=== PATIENT | female | born 1985 | race Hispanic/Latino ===

== ENCOUNTER 2016-10-27 20:07 | Emergency (ER) | payer OTHER ==
[2016-10-27 20:07] VITALS: BMI 22.6
[2016-10-27 20:14] VITALS: RESP 16; TEMP 98; O2SAT 100
--- NOTE | 2016-10-27 20:48 | C.PDOC ---
History Of Present Illness 31 yo female come inf or evaluation of Left flank pain for past few weeks gradually worsen. Pt reports, pain is intermittent, worse with movement, with intermittent radiation to Left buttock and Left leg. Pt admits, noted some pain on urination for past few days. Pt admits, similar lower flank/back pain in past " not as strong as now, usually relieved with Ibuprofen". Otherwise, pt denies known trauma or injury, fever, chills, abd. pain, N/V/D, hematuria, vaginal irritation or discharge, denies weakness, sensory or vascular deficits to B/L LEs. Ambulate to ED for evaluation, not in nay apparent distress. Time Seen by Provider: 10/27/16 20:20 Chief Complaint (Nursing): Lower Extremity Problem/Injury History Per: Patient Onset/Duration Of Symptoms: Intermittent Episodes, Gradual Current Symptoms Are (Timing): Still Present Severity: Moderate Recent travel outside of the [place]: No Past Medical History Reviewed: Historical Data, Nursing Documentation, Vital Signs Vital Signs: Last Vital Signs Temp 98.0 F 10/27/16 20:10 Pulse 68 10/27/16 20:10 Resp 16 10/27/16 20:10 BP 106/72 10/27/16 20:10 Pulse Ox 100 10/27/16 21:22 - Medical History PMH: No Chronic Diseases Surgical History: No Surg Hx Family History: States: No Known Family Hx - Social History Hx Alcohol Use: Yes Hx Substance Use: No - Immunization History Hx Tetanus Toxoid Vaccination: No Hx Influenza Vaccination: No Hx Pneumococcal Vaccination: No Review Of Systems Except As Marked, All Systems Reviewed And Found Negative. Constitutional: Negative for: Fever, Chills ENT: Negative for: Throat Pain Respiratory: Negative for: Cough Gastrointestinal: Negative for: Nausea, Vomiting, Abdominal Pain, Diarrhea Genitourinary: Positive for: Dysuria. Negative for: Frequency, Incontinence Musculoskeletal: Positive for: Back Pain Skin: Negative for: Rash Neurological: Negative for: Weakness, Numbness, Headache, Dizziness Physical Exam - Physical Exam Appears: Well, Non-toxic, No Acute Distress Skin: Normal Color, Warm, No Rash Eye(s): bilateral: Normal Inspection Nose: No Discharge Oral Mucosa: Moist, No Drooling Throat: Normal, No Erythema, No Exudate, No Drooling Neck: Normal ROM, Trachea Midline, Supple Cardiovascular: Rhythm Regular Respiratory: No Decreased Breath Sounds, No Accessory Muscle Use, No Stridor, No Wheezing Gastrointestinal/Abdominal: Soft, Tenderness (mild suprapubic tenderness), No Distention, No Guarding, No Rebound Back: No CVA Tenderness, No Vertebral Tenderness, Decreased ROM (of L-spine dur to pain), Paraspinal Tenderness (Left flank and diffuse left lumbar paraspinal tenderness extend kedar nt o left gluteus. No midline tenderness, no sckin changes.) Extremity: Normal ROM, No Tenderness, No Pedal Edema, No Deformity, No Swelling Extremity: Bilateral: Atraumatic Neurological/Psych: Oriented x3, Normal Speech, Normal Motor, Normal Sensation, Normal Reflexes ED Course And Treatment O2 Sat by Pulse Oximetry: 100 Pulse Ox Interpretation: Normal Progress Note: On re-eval, pt is afebrile, hemodynamicaly stable. Ambulatory in ED with stable gait. [place] Po well in Ed. PulseOx 100% RA. Neck: (-) meningeal sign. ENT: no acute findings. Lungs: CTA B/L, BS equal B/L. Abd: benign. Back: (-) CVA tenderness. Neurologicaly intact. UA results review and appears normal. last menstrual was 1 month ago. (-). Pt has clinical findings c/w flank pain, Left lumbar radiculopathy. Pt advised. ref. to f/u with PMD in 1-2 dyas for re-eval. return to ED if any worsening or new changes. Disposition Counseled Patient/Family Regarding: Studies Performed, Diagnosis, Need For Followup, Rx Given - Disposition Referrals: Agusto Cerna MD [Staff Provider] - Disposition: HOME/ ROUTINE Disposition Time: 20:55 Condition: STABLE Additional Instructions: Light duty to lower back, avoid any physical activity for 1 week Avoid heavy lifting, bending, etc. take pain medication as need for pain Follow up with PMD in 2-3 days for re-evaluation. Return to ED if any worsening or new changes. Prescriptions: Ibuprofen [Motrin] 1 tab PO TID PRN #20 tab PRN Reason: Pain Methocarbamol [Robaxin] 500 mg PO TID #14 tab traMADol [Ultram] 50 mg PO TID #7 tab Instructions: Lumbar Radiculopathy (ED) Print Language: ARMENIAN - Clinical Impression Clinical Impression: Flank pain, Lumbar radiculopathy
[2016-10-27 21:21] LABS: RBC URINE 8 /hpf (0-3); URINE BACTERIA RARE (<OCC); URINE BILIRUBIN NEGATIVE (NEGATIVE); URINE BLOOD 2+ (NEGATIVE); URINE COLOR Straw (YELLOW); URINE GLUCOSE (UA) NORMAL (Normal); URINE KETONE NEGATIVE (NEGATIVE); URINE LEUKOCYTE ESTERASE NEG Leu/uL (Negative); URINE PROTEIN NEGATIVE (NEGATIVE); URINE UROBILINOGEN NORMAL mg/dL (0.2-1.0); WBC URINE < 1 /hpf (0-5)
[2016-10-27 22:08] VITALS: BP 108/71; PULSE 87
== END 2016-10-27 22:07 | disposition home or self-care (01) ==
LOC: C.ER 20:07
DX: M54.16 Radiculopathy, lumbar region (principal)

== ENCOUNTER 2016-11-12 07:58 | Emergency (ER) | payer OTHER ==
[2016-11-12 07:58] VITALS: BMI 22.6
[2016-11-12] MEDS ORDERED: Lidocaine 5% Patch TD STA (08:33)
--- NOTE | 2016-11-12 08:33 | C.PDOC ---
History Of Present Illness 31-year-old female, presents to the emergency department with complaints of recurring B/L upper back, neck and right-upper ext pain x3 days. Patient notes initial relief with Tramadol, but ran out two days ago. Patient states she is unable to sleep due to pain. Pain is constant, worse with movement. No associated weakness/numbness. Pt had a similar episode one year ago w/ evaluation by PMD "he said it's due to stress." Denies other associated symptoms. States he couldn't see PMD due to office closed. RECUR B/L UPPER BACK, NECK, RUE PAIN X 3 DAYS. INITIAL RELIEF W TRAMADOL BUT RAN OUT 2 DAYS AGO. PS UNABLE TO SLEEP DUE TO PAIN. PAIN CONSTANT, WORSE W MOVEMENT. NO ASSOC WEAK/NUMB. SIM EPISODE 1 YR AGO W EVAL BY PMD, "HE SAID IT'S DUE TO STRESS". DENIES OTHER ASSOC SX STATES COULDNT SEE PMD DUE TO OFFICE CLOSED. EXAM MILD DIST NONTOXIC HEENT NEG NECK AROM WO DIFF, +REPRODUC PAIN W ROM. B/L PARACERV TEND BACK +B/L SPASM W TEND UPPER BACK. LIMITED ROM DUE TO PAIN. NEURO INTACT NO FOCAL DEF EXT ATRAUM, NONTEND SKIN WNL [facility] REVIEWED 10/30/2016 1 10/27/2016 TRAMADOL HCL 50 MG TABLET 7.0 Time Seen by Provider: 11/12/16 08:19 Chief Complaint (Nursing): Back Pain History Per: Patient History/Exam Limitations: no limitations Past Medical History Reviewed: Historical Data, Nursing Documentation, Vital Signs Vital Signs: Last Vital Signs Temp 98.5 F 11/12/16 08:06 Pulse 75 11/12/16 08:06 Resp 18 11/12/16 08:45 BP 101/70 11/12/16 08:06 Pulse Ox 100 11/12/16 09:28 Family History: States: Unknown Family Hx - Social History Hx Alcohol Use: Yes Hx Substance Use: No - Immunization History Hx Tetanus Toxoid Vaccination: No Hx Influenza Vaccination: No Hx Pneumococcal Vaccination: No Review Of Systems Except As Marked, All Systems Reviewed And Found Negative. Constitutional: Negative for: Fever, Chills Cardiovascular: Negative for: Chest Pain, Palpitations Respiratory: Negative for: Shortness of Breath Gastrointestinal: Negative for: Nausea, Vomiting Musculoskeletal: Positive for: Neck Pain, Shoulder Pain, Arm Pain, Back Pain Skin: Negative for: Rash Neurological: Negative for: Weakness, Numbness, Headache, Dizziness Physical Exam - Physical Exam Appears: Non-toxic, No Acute Distress Skin: Warm, Dry, No Rash Head: Atraumatic, Normacephalic Eye(s): bilateral: Normal Inspection, PERRL Nose: Normal Lips: Normal Appearing Neck: Normal ROM, Supple, Other (+REPRODUC PAIN W ROM. B/L PARACERV TEND) Cardiovascular: Rhythm Regular Respiratory: Normal Breath Sounds, No Accessory Muscle Use Back: Other (+B/L SPASM W TEND UPPER BACK. LIMITED ROM DUE TO PAIN.) Extremity: Normal ROM Neurological/Psych: Oriented x3, Normal Speech ED Course And Treatment O2 Sat by Pulse Oximetry: 100 Progress - Re-Evaluation Re-evaluation Note: 11/12/16 08:34 PT ADVISED OF DEPT PAIN MED POLICY. COPY GIVEN. ADVISED NEED FOR PMD FU - Data Reviewed Data Reviewed: Old records, Other ([facility]) Medical Decision Making Medical Decision Making: [facility] REVIEWED 10/30/2016 1 10/27/2016 TRAMADOL HCL 50 MG TABLET 7.0 Disposition Counseled Patient/Family Regarding: Diagnosis, Need For Followup, Rx Given - Disposition Referrals: YOUR,PMD [Other] Disposition: HOME/ ROUTINE Disposition Time: 08:34 Condition: IMPROVED Prescriptions: Lidocaine 5% [Lidoderm] 1 ea TD PRN PRN #10 patch PRN Reason: Pain, Moderate (4-7) traMADol [Ultram] 50 mg PO TID #15 tab Instructions: Muscle Spasm (ED) - Clinical Impression Clinical Impression: Muscle spasm - Scribe Statement The provider has reviewed the documentation as recorded by the Federico Chandler All medical record entries made by the Agapitoibleonard were at my direction and personally dictated by me. I have reviewed the chart and agree that the record accurately reflects my personal performance of the history, physical exam, medical decision making, and the department course for this patient. I have also personally directed, reviewed, and agree with the discharge instructions and disposition.
[2016-11-12 08:37] VITALS: BP 101/70; PULSE 75; TEMP 98.5; O2SAT 100
[2016-11-12 09:27] VITALS: RESP 18
== END 2016-11-12 08:46 | disposition home or self-care (01) ==
LOC: C.ER 07:58
DX: M62.838 Other muscle spasm (principal)

== ENCOUNTER 2016-12-01 09:14 | Emergency (ER) | payer OTHER ==
[2016-12-01 09:19] VITALS: TEMP 97.5
[2016-12-01 09:29] VITALS: BMI 22.8
--- NOTE | 2016-12-01 09:49 | C.PDOC ---
History Of Present Illness 31-year-old female, presents to the emergency department with complaints of chronic upper back and neck pain. Patient reports relief with Tramadol, but ran out four days ago. Pain is constant aching and worse with movement. No associated weakness/numbness. Denies other associated symptoms. Time Seen by Provider: 12/01/16 09:41 Chief Complaint (Nursing): Back Pain History Per: Patient History/Exam Limitations: no limitations Onset/Duration Of Symptoms: Days Quality Of Discomfort: Aching Previous Symptoms: Back Pain, Neck Pain Associated Symptoms: denies: New Weakness, New Numbness Exacerbating Factor(s): Movement Past Medical History Reviewed: Historical Data, Nursing Documentation, Vital Signs Vital Signs: Last Vital Signs Temp 97.5 F L 12/01/16 09:19 Pulse 72 12/01/16 10:32 Resp 18 12/01/16 10:32 BP 120/72 12/01/16 10:32 Pulse Ox 98 12/01/16 10:32 - Medical History PMH: Back Problems Family History: States: Unknown Family Hx - Social History Hx Alcohol Use: Yes Hx Substance Use: No - Immunization History Hx Tetanus Toxoid Vaccination: Yes Hx Influenza Vaccination: Yes Hx Pneumococcal Vaccination: No Review Of Systems Constitutional: Negative for: Fever, Chills Cardiovascular: Negative for: Chest Pain Gastrointestinal: Negative for: Nausea, Vomiting, Diarrhea Musculoskeletal: Positive for: Neck Pain, Back Pain Neurological: Negative for: Weakness Physical Exam - Physical Exam Appears: Non-toxic, No Acute Distress Skin: Normal Color, Warm Head: Atraumatic, Normacephalic Eye(s): bilateral: Normal Inspection Oral Mucosa: Moist Neck: Normal ROM (Pain with ROM), Paracervical Tenderness (Bilateral Paracervical tenderness), No Step Off Deformity Cardiovascular: Rhythm Regular Respiratory: Normal Breath Sounds, No Rales, No Rhonchi, No Wheezing Back: Normal Inspection, No Vertebral Tenderness, No Decreased ROM, Paraspinal Tenderness (Parathhoracic Tenderness) Extremity: Bilateral: Atraumatic, Normal Color And Temperature, Normal ROM Neurological/Psych: Oriented x3, Normal Speech, Normal Motor, Normal Sensation, Other (No focal deficits) Gait: Steady ED Course And Treatment O2 Sat by Pulse Oximetry: 100 Medical Decision Making Medical Decision Making: Patient here for neck and upper back pain. Prior records show 2 similar visits for same sx. This is patient 3rd ER visit for same [facility] Reviewed: 11/12/2016 TRAMADOL HCL 50 MG TABLET #15.0 10/30/2016 TRAMADOL HCL 50 MG TABLET #7.0 I discussed ED Department Pain management policy, and explain this will be last visit for pain meds of chronic condition. She must follow up outpatient Disposition Counseled Patient/Family Regarding: Need For Followup, Rx Given - Disposition Referrals: Kay Gusman MD [Staff Provider] - Disposition: HOME/ ROUTINE Disposition Time: 09:51 Condition: STABLE Additional Instructions: Please follow up in the clinic for further evaluation and treatment of your pain Take Tramadol as needed Return to ER at anytime for any worsening pain. Prescriptions: traMADol [Ultram] 50 mg PO Q8 #15 tab Instructions: Back Pain (ED) - POA Present On Arrival: None - Clinical Impression Clinical Impression: Thoracic back pain, Neck pain - PA / INSTALLER / Resident Statement MD/DO has reviewed & agrees with the documentation as recorded. - Scribe Statement The provider has reviewed the documentation as recorded by the Agapitoibleonard Kennedy All medical record entries made by the Federico were at my direction and personally dictated by me. I have reviewed the chart and agree that the record accurately reflects my personal performance of the history, physical exam, medical decision making, and the department course for this patient. I have also personally directed, reviewed, and agree with the discharge instructions and disposition.
[2016-12-01 10:32] VITALS: BP 120/72; PULSE 72; RESP 18
[2016-12-01 14:40] VITALS: O2SAT 100
== END 2016-12-01 10:33 | disposition home or self-care (01) ==
LOC: SUPCPDRO 09:14 → C.ER 09:14
DX: M54.6 Pain in thoracic spine (principal); M54.2 Cervicalgia

== ENCOUNTER 2017-05-28 07:16 | Day surgery (SDC) | payer OTHER ==
[2017-05-28 07:36] VITALS: BMI 23.2
[2017-05-28 07:50] VITALS: TEMP 98; O2SAT 100
[2017-05-28] MEDS ORDERED: Propofol 10 mg/ml Inj (20 ML) ONE (09:10)
[2017-05-28 10:37] VITALS: BP 100/57; PULSE 64; RESP 19
== END 2017-05-28 10:34 | disposition home or self-care (01) ==
LOC: C.ENDO 07:16
PROVIDERS: ATTEND Internal Medicine
DX: R11.2 Nausea with vomiting, unspecified (principal); K29.70 Gastritis, unspecified, without bleeding
CPT/HCPCS: 43239; 84703; 88305; J2704

== ENCOUNTER 2017-07-28 19:13 | Emergency (ER) | payer OTHER ==
[2017-07-28 19:14] VITALS: BMI 23.2
[2017-07-28 20:05] VITALS: RESP 20; O2SAT 100
[2017-07-28] MEDS ORDERED: Alum-Mag Hydrox-Simethicone Susp (30 mL) PO STA (20:29)
[2017-07-28] MEDS ORDERED: Sodium Chloride 0.9% 1,000 ML IV ONE (20:29)
--- NOTE | 2017-07-28 20:42 | C.PDOC ---
History Of Present Illness Chapis Moulton is a 32 year old female, with a past medical history of gastritis and back problems, who presents to the emergency department complaining of epigastric abdominal pain, vomiting and back pain onset since yesterday. Patient also reports watery diarrhea today. Patient had an EGD done and was told she had H. Pylori recently. No similar symptoms in the past. She denies any fever or other medical complaints. PMD: None provided. Time Seen by Provider: 07/28/17 20:15 Chief Complaint (Nursing): Abdominal Pain History Per: Patient History/Exam Limitations: no limitations Onset/Duration Of Symptoms: Days (x1) Current Symptoms Are (Timing): Still Present Location Of Pain/Discomfort: Epigastric Radiation Of Pain To:: None Quality Of Discomfort: "Pain" Associated Symptoms: Vomiting, Diarrhea (watery), Back Pain. denies: Fever Past Medical History Reviewed: Historical Data, Nursing Documentation, Vital Signs Vital Signs: Last Vital Signs Temp 98.2 F 07/28/17 22:49 Pulse 78 07/28/17 22:49 Resp 20 07/28/17 22:49 BP 92/62 L 07/28/17 22:49 Pulse Ox 100 07/28/17 22:49 - Medical History PMH: Back Problems, Gastritis Denies: Chronic Kidney Disease Surgical History: No Surg Hx Family History: States: Unknown Family Hx - Social History Hx Tobacco Use: No Hx Alcohol Use: Yes Hx Substance Use: No - Immunization History Hx Tetanus Toxoid Vaccination: Yes Hx Influenza Vaccination: Yes Hx Pneumococcal Vaccination: No Review Of Systems Constitutional: Negative for: Fever, Chills Cardiovascular: Negative for: Chest Pain Respiratory: Negative for: Cough, Shortness of Breath Gastrointestinal: Positive for: Vomiting, Abdominal Pain (epigastric), Diarrhea (watery). Negative for: Nausea Musculoskeletal: Positive for: Back Pain Neurological: Negative for: Weakness, Numbness Physical Exam - Physical Exam Appears: Well, Non-toxic, No Acute Distress Skin: Normal Color, Warm, Dry Head: Atraumatic, Normacephalic Eye(s): bilateral: Normal Inspection Oral Mucosa: Moist Neck: Supple Chest: Symmetrical, No Tenderness Cardiovascular: Rhythm Regular Respiratory: No Decreased Breath Sounds, No Accessory Muscle Use, No Rales, No Rhonchi, No Wheezing Gastrointestinal/Abdominal: Tenderness (epigastric ) Extremity: No Swelling Neurological/Psych: Oriented x3, Normal Speech, Normal Cognition, Other (no focal deficits) ED Course And Treatment - Laboratory Results Result Diagrams: 07/28/17 21:03 07/28/17 21:03 O2 Sat by Pulse Oximetry: 100 (RA) Pulse Ox Interpretation: Normal Medical Decision Making Medical Decision Makin pt feeling better. disc plan for rx, f/u, rtr. Disposition - Disposition Disposition: HOME/ ROUTINE Disposition Time: 22:30 Condition: IMPROVED Additional Instructions: Please follow up with your doctor. Return to the ER for any worsening symptoms or for any other concerns. Prescriptions: Famotidine [Pepcid] 20 mg PO DAILY #14 tab Sucralfate [Carafate Oral Susp] 1 gm PO TID #6 dose Instructions: Diet for Ulcers and Gastritis (ED) Forms: General Discharge Instructions, [facility] (Danish) - Clinical Impression Clinical Impression: Epigastric pain - Scribe Statement Lisandro Acuña Provider Attestation: All medical record entries made by the Scribe were at my direction and personally dictated by me. I have reviewed the chart and agree that the record accurately reflects my personal performance of the history, physical exam, medical decision making, and the department course for this patient. I have also personally directed, reviewed, and agree with the discharge instructions and disposition.
[2017-07-28 21:06] LABS: BASO % 0.3 % (0.0-2.0); EOS # 0.2 K/uL (0.0-0.7); EOS % 2.6 % (0.0-4.0); HEMOGLOBIN 13.5 g/dL (11.0-16.0); LYMPH # 1.5 K/uL (1.0-4.3); LYMPH % 19.2 % (20.0-40.0); MEAN CORPUSCULAR HEMOGLOBIN 32.1 pg (27.0-31.0); MEAN CORPUSCULAR HGB CONC 33.8 g/dL (33.0-37.0); MEAN PLATELET VOLUME 8.9 fL (7.2-11.7); MONO # 0.4 K/uL (0.0-0.8); MONO % 5.1 % (0.0-10.0); NEUT # 5.7 K/uL (1.8-7.0); NEUT % 72.8 % (50.0-75.0); NRBC % 0.1 % (0.0-2.0); RBC 4.19 Mil/uL (3.80-5.20); RED CELL DISTRIBUTION WIDTH 12.9 % (11.5-14.5); WHITE BLOOD COUNT 7.9 K/uL (4.8-10.8)
[2017-07-28 21:19] LABS: ALB/GLOB RATIO 1.2 (1.0-2.1); ALBUMIN 4.2 g/dL (3.5-5.0); ALT/SGPT 31 U/L (9-52); AST/SGOT 21 U/L (14-36); BLOOD UREA NITROGEN 10 mg/dL (7-17); GFR AFRICAN-AMERICAN > 60; GFR NON-AFRICAN AMERICAN > 60; LIPASE 98 U/L (23-300)
[2017-07-28] MEDS ORDERED: Alum-Mag Hydrox-Simethicone Susp (30 mL) ONE (21:43)
[2017-07-28] MEDS ORDERED: Sodium Chloride 0.9% 1,000 ML ONE (21:43)
[2017-07-28 22:04] LABS: SQUAMOUS EPITHIAL 9 /hpf (0-5); URINE BACTERIA RARE (<OCC); URINE BILIRUBIN NEGATIVE (NEGATIVE); URINE BLOOD 2+ (NEGATIVE); URINE CLARITY Clear (Clear); URINE COLOR Yellow (YELLOW); URINE GLUCOSE (UA) NORMAL (Normal); URINE LEUKOCYTE ESTERASE NEG Leu/uL (Negative); URINE NITRATE NEGATIVE (NEGATIVE); URINE PROTEIN NEGATIVE (NEGATIVE); URINE UROBILINOGEN NORMAL mg/dL (0.2-1.0)
[2017-07-28 22:06] LABS: HCG,QUALITATIVE URINE NEGATIVE (NEGATIVE)
[2017-07-28 22:50] VITALS: BP 92/62; PULSE 78; TEMP 98.2
== END 2017-07-28 22:49 | disposition home or self-care (01) ==
LOC: C.ER 19:13
DX: R10.13 Epigastric pain (principal)

== ENCOUNTER 2017-11-14 18:26 | Emergency (ER) | payer SELFPAY ==
[2017-11-14 18:26] VITALS: BMI 23.2
[2017-11-14 18:32] VITALS: RESP 20
[2017-11-14 19:22] LABS: BASO # 0.1 K/uL (0.0-0.2); BASO % 0.7 % (0.0-2.0); EOS # 0.2 K/uL (0.0-0.7); EOS % 2.1 % (0.0-4.0); HEMOGLOBIN 12.5 g/dL (11.0-16.0); LYMPH # 3.3 K/uL (1.0-4.3); LYMPH % 39.7 % (20.0-40.0); MEAN CELL VOLUME 96.2 fL (81.0-99.0); MEAN CORPUSCULAR HGB CONC 34.3 g/dL (33.0-37.0); MEAN PLATELET VOLUME 9.5 fL (7.2-11.7); MONO # 0.6 K/uL (0.0-0.8); MONO % 7.5 % (0.0-10.0); NEUT # 4.1 K/uL (1.8-7.0); RBC 3.79 Mil/uL (3.80-5.20); RED CELL DISTRIBUTION WIDTH 12.9 % (11.5-14.5); WHITE BLOOD COUNT 8.3 K/uL (4.8-10.8)
[2017-11-14 19:25] LABS: HCG,QUALITATIVE URINE NEGATIVE (NEGATIVE)
--- NOTE | 2017-11-14 19:26 | C.PDOC ---
History Of Present Illness 32 year old female presents to the emergency department with complaints of abdominal pain persisting since last night. Patient states that initially her pain was tolerable, but has progressively become worse as it now radiates to her lower back. Patient states that she feels the need to have a bowel movement , but is unable to due to pressure in her rectal area which makes it difficult. Patient denies fever, chills, nausea, vomiting, vaginal bleeding or discharge. Patient reports her last normal menstrual period was on 09-10-17, stating that her period is normally irregular. Time Seen by Provider: 11/14/17 18:58 Chief Complaint (Nursing): Abdominal Pain History Per: Patient History/Exam Limitations: no limitations Onset/Duration Of Symptoms: Days (1) Current Symptoms Are (Timing): Still Present Radiation Of Pain To:: Back Quality Of Discomfort: "Pain" Associated Symptoms: Back Pain. denies: Fever, Chills, Nausea, Vomiting, Urinary Symptoms, Other (vaginal bleeding or discharge) Last Menstral Period: 09-10-17 Past Medical History Reviewed: Historical Data, Nursing Documentation, Vital Signs Vital Signs: Last Vital Signs Temp 98.5 F 11/14/17 18:28 Pulse 71 11/14/17 18:28 Resp 20 11/14/17 18:28 BP 113/75 11/14/17 18:28 Pulse Ox 100 11/14/17 19:33 - Medical History PMH: Back Problems, Gastritis Denies: Chronic Kidney Disease Surgical History: No Surg Hx Family History: States: No Known Family Hx - Social History Hx Tobacco Use: No Hx Alcohol Use: No Hx Substance Use: No - Immunization History Hx Tetanus Toxoid Vaccination: Yes Hx Influenza Vaccination: Yes Hx Pneumococcal Vaccination: No Review Of Systems Constitutional: Negative for: Fever, Chills Gastrointestinal: Positive for: Abdominal Pain. Negative for: Nausea, Vomiting Genitourinary: Negative for: Vaginal Discharge, Vaginal Bleeding Physical Exam - Physical Exam Appears: Non-toxic, No Acute Distress Oral Mucosa: Moist Cardiovascular: Rhythm Regular Respiratory: Normal Breath Sounds Gastrointestinal/Abdominal: Normal Exam, Soft, No Tenderness, No Mass, No Distention, No Guarding, No Rebound Back: Normal Inspection, No CVA Tenderness Neurological/Psych: Oriented x3, Normal Speech, Normal Cognition ED Course And Treatment - Laboratory Results Result Diagrams: 11/14/17 19:19 11/14/17 19:19 Lab Interpretation: Normal O2 Sat by Pulse Oximetry: 100 (RA) Pulse Ox Interpretation: Normal Reevaluation Time: 20:16 Reassessment Condition: Improved (Patient appears comfortable. Abdomen soft.) Medical Decision Making Medical Decision Making: Plan: CMP CBC HCG Urinalysis Disposition Counseled Patient/Family Regarding: Studies Performed, Diagnosis, Need For Followup, Rx Given - Disposition Referrals: [facility] [Outside] Disposition: HOME/ ROUTINE Disposition Time: 20:16 Condition: STABLE Prescriptions: Naproxen [Naprosyn] 1 tab PO BID PRN #25 tab PRN Reason: Pain Instructions: Acute Pelvic Pain (DC) Forms: [employer] (Maltese) - Clinical Impression Clinical Impression: Suprapubic pain - Scribe Statement The provider has reviewed the documentation as recorded by the Scribe (Dimitris Kelly) Provider Attestation: All medical record entries made by the Scribe were at my direction and personally dictated by me. I have reviewed the chart and agree that the record accurately reflects my personal performance of the history, physical exam, medical decision making, and the department course for this patient. I have also personally directed, reviewed, and agree with the discharge instructions and disposition.
[2017-11-14 19:28] LABS: SQUAMOUS EPITHIAL 3 /hpf (0-5); URINE BILIRUBIN NEGATIVE (NEGATIVE); URINE BLOOD 2+ (NEGATIVE); URINE CLARITY Clear (Clear); URINE COLOR Colorless (YELLOW); URINE GLUCOSE (UA) NORMAL (Normal); URINE LEUKOCYTE ESTERASE NEG Leu/uL (Negative); URINE PROTEIN NEGATIVE (NEGATIVE); URINE UROBILINOGEN NORMAL mg/dL (0.2-1.0)
[2017-11-14 19:35] LABS: ALB/GLOB RATIO 1.3 (1.0-2.1); ALBUMIN 4.2 g/dL (3.5-5.0); ALT/SGPT 46 U/L (9-52); AST/SGOT 30 U/L (14-36); BLOOD UREA NITROGEN 11 mg/dL (7-17); CALCIUM 9.5 mg/dl (8.6-10.4); GFR AFRICAN-AMERICAN > 60; GFR NON-AFRICAN AMERICAN > 60
[2017-11-14] MEDS ORDERED: Naproxen 550 mg Tab PO STA (20:18)
[2017-11-14] MEDS ORDERED: Naproxen 550 mg Tab PO ONE (20:28)
[2017-11-14 20:33] VITALS: BP 95/61; PULSE 72; TEMP 98.6; O2SAT 99
== END 2017-11-14 20:33 | disposition home or self-care (01) ==
LOC: C.ER 18:26
DX: R10.30 Lower abdominal pain, unspecified (principal)

== ENCOUNTER 2018-03-07 18:50 | Emergency (ER) | payer SELFPAY ==
[2018-03-07 18:50] VITALS: BMI 23.2
[2018-03-07 19:19] VITALS: O2SAT 98
[2018-03-07] MEDS ORDERED: Sodium Chloride 0.9% 1,000 ML IV ONE (19:47)
[2018-03-07 20:02] LABS: BASO # 0.1 K/uL (0.0-0.2); BASO % 1.2 % (0.0-2.0); EOS # 0.1 K/uL (0.0-0.7); EOS % 0.6 % (0.0-4.0); HEMOGLOBIN 13.2 g/dL (11.0-16.0); LYMPH # 2.7 K/uL (1.0-4.3); LYMPH % 28.1 % (20.0-40.0); MEAN CELL VOLUME 94.6 fL (81.0-99.0); MEAN CORPUSCULAR HEMOGLOBIN 33.5 pg (27.0-31.0); MEAN CORPUSCULAR HGB CONC 35.4 g/dL (33.0-37.0); MEAN PLATELET VOLUME 9.6 fL (7.2-11.7); MONO # 0.5 K/uL (0.0-0.8); MONO % 4.9 % (0.0-10.0); NEUT # 6.3 K/uL (1.8-7.0); NEUT % 65.2 % (50.0-75.0); NRBC % 0.3 % (0.0-2.0); RBC 3.94 Mil/uL (3.80-5.20); RED CELL DISTRIBUTION WIDTH 12.4 % (11.5-14.5); WHITE BLOOD COUNT 9.7 K/uL (4.8-10.8)
[2018-03-07] MEDS ORDERED: Sodium Chloride 0.9% 1,000 ML ONE (20:03)
[2018-03-07 20:13] LABS: ALB/GLOB RATIO 1.5 (1.0-2.1); ALBUMIN 4.5 g/dL (3.5-5.0); ALT/SGPT 40 U/L (9-52); AST/SGOT 24 U/L (14-36); BLOOD UREA NITROGEN 12 mg/dL (7-17); CALCIUM 9.5 mg/dl (8.6-10.4); GFR NON-AFRICAN AMERICAN > 60; LIPASE 100 U/L (23-300)
[2018-03-07 21:33] VITALS: BP 102/74; PULSE 75; RESP 16; TEMP 98.3
--- NOTE | 2018-03-08 03:23 | C.PDOC ---
History Of Present Illness 33 year old female presents to the ED for evaluation of epigastric abdominal pain and vomiting which began today. Patient states she was recently diagnosed with H. Pylori and the medication she is taking has been making her more sick. Patient reports history of H. Pylori in the past. She denies fever, chills, hematuria, blood in stool or changes in diet. Chief Complaint (Nursing): Abdominal Pain History Per: Patient History/Exam Limitations: no limitations Onset/Duration Of Symptoms: Hrs Current Symptoms Are (Timing): Still Present Location Of Pain/Discomfort: Epigastric Radiation Of Pain To:: None Quality Of Discomfort: "Pain" Associated Symptoms: Vomiting. denies: Fever, Chills, Urinary Symptoms Additional History Per: Patient Abnormal Vaginal Bleeding: No Past Medical History Reviewed: Historical Data, Nursing Documentation, Vital Signs Vital Signs: Last Vital Signs Temp 98.3 F 03/07/18 21:32 Pulse 75 03/07/18 21:32 Resp 16 03/07/18 21:32 BP 102/74 03/07/18 21:32 Pulse Ox 98 03/08/18 03:25 - Medical History PMH: Back Problems, Gastritis, Rheumatoid Arthritis Denies: Chronic Kidney Disease Surgical History: No Surg Hx Family History: States: Unknown Family Hx - Social History Hx Tobacco Use: No Hx Alcohol Use: No Hx Substance Use: No - Immunization History Hx Tetanus Toxoid Vaccination: No Hx Influenza Vaccination: No Hx Pneumococcal Vaccination: No Review Of Systems Constitutional: Negative for: Fever, Chills Gastrointestinal: Positive for: Vomiting, Abdominal Pain. Negative for: Hematochezia Genitourinary: Negative for: Hematuria Physical Exam - Physical Exam Appears: Non-toxic, No Acute Distress Skin: Normal Color, Warm, Dry Head: Atraumatic, Normacephalic Eye(s): bilateral: Normal Inspection Oral Mucosa: Moist Neck: Supple Chest: Symmetrical, No Deformity, No Tenderness Cardiovascular: Rhythm Regular, No Murmur Respiratory: Normal Breath Sounds, No Rales, No Rhonchi, No Wheezing Gastrointestinal/Abdominal: Soft, Tenderness (epigastric ), No Guarding, No Rebound Extremity: Normal ROM, Capillary Refill (less than 2 seconds ) Neurological/Psych: Oriented x3, Normal Speech, Normal Cognition ED Course And Treatment - Laboratory Results Result Diagrams: 03/07/18 19:59 03/07/18 19:59 O2 Sat by Pulse Oximetry: 98 (on RA) Pulse Ox Interpretation: Normal Reassessment Condition: Improved Medical Decision Making Medical Decision Making: Impression: 33 year old female with epigastric abdominal pain and vomiting Progress: Bloodwork ordered and reviewed. Pepcid IVP, Zofran IVP and IV Fluids given. On re-examination, patient is resting comfortably, tolerating PO intake, and reports an improvement in her symptoms. Patient is stable for discharge. She is advised to f/u with her PMD within 1-2 days for further evaluation and/or return to the ED if symptoms return or worsen. Disposition - Disposition Referrals: [facility] [Outside] [facility] [Outside] Disposition: HOME/ ROUTINE Disposition Time: 20:40 Condition: IMPROVED Additional Instructions: ANNAMARIE RAMIREZ, thank you for letting us take care of you today. The emergency medical care you received today was directed at your acute symptoms. If you were prescribed any medication, please fill it and take as directed. It may take several days for your symptoms to resolve. Return to the Emergency Department if your symptoms worsen, do not improve, or if you have any other problems. Please contact your doctor or call one of the physicians/clinics you have been referred to that are listed on the Patient Visit Information form that is included in your discharge packet. Bring any paperwork you were given at discharge with you along with any medications you are taking to your follow up visit. Our treatment cannot replace ongoing medical care by a primary care provider outside of the emergency department. [facility] part of your care today. Continue taking the medication as prescribed. Follow up with the clinic in 3-5 days. They may refer you to a GI doctor. Prescriptions: Ondansetron ODT [Zofran ODT] 8 mg PO Q8 PRN #20 odt PRN Reason: Nausea/Vomiting Ranitidine HCl [Zantac] 150 mg PO BID #20 tablet Instructions: Gastritis (DC), H. pylori Infection (DC) Forms: [employer] (Kazakh) - Clinical Impression Clinical Impression: Gastroesophageal reflux disease - PA / HIGH [employer]CHO[employer] DIRECTOR / Resident Statement MD/DO has reviewed & agrees with the documentation as recorded. - Scribe Statement The provider has reviewed the documentation as recorded by the Scribe (Maite Oliveira) Provider Attestation: All medical record entries made by the Scribe were at my direction and personally dictated by me. I have reviewed the chart and agree that the record accurately reflects my personal performance of the history, physical exam, medical decision making, and the department course for this patient. I have also personally directed, reviewed, and agree with the discharge instructions and disposition.
== END 2018-03-07 21:32 | disposition home or self-care (01) ==
LOC: C.ER 18:50
DX: K21.9 Gastro-esophageal reflux disease without esophagitis (principal); M06.9 Rheumatoid arthritis, unspecified
CPT/HCPCS: 80053; 83690; 85025; 96361; 96374; 96375; 99284; J2405; J7030

== ENCOUNTER 2018-08-03 10:33 | Outpatient (CLI) | payer SELFPAY | END 2018-08-03 10:34 | disposition home or self-care (01) | LOC: C.LAB 10:33 | DX: D64.9 Anemia, unspecified (principal); E03.9 Hypothyroidism, unspecified; N39.0 Urinary tract infection, site not specified ==

== ENCOUNTER 2018-08-13 09:31 | Outpatient (CLI) | payer SELFPAY | END 2018-08-13 09:32 | disposition home or self-care (01) | LOC: C.USIC 09:31 | DX: R10.30 Lower abdominal pain, unspecified (principal) ==

== ENCOUNTER 2018-11-27 18:20 | Emergency (ER) | payer OTHER, SELFPAY ==
[2018-11-27 18:20] VITALS: BMI 23.6
[2018-11-27 18:25] VITALS: RESP 16
--- NOTE | 2018-11-27 19:27 | C.PDOC ---
History Of Present Illness 33 year old male presents to the ED c/o left sided neck and shoulder pain for the last few days. Patient also reports anterior chest wall pain that started yesterday. Patient denies headache, visual changes, dizziness, nausea, vomit, diarrhea, SOB, palpitations, rash, weakness, numbness. Chief Complaint (Nursing): Back Pain History Per: Patient History/Exam Limitations: no limitations Onset/Duration Of Symptoms: Days Current Symptoms Are (Timing): Still Present Quality Of Discomfort: "Pain" Exacerbating Factor(s): Movement Recent travel outside of the [place] States: No Additional History Per: Patient Past Medical History Reviewed: Historical Data, Nursing Documentation, Vital Signs Vital Signs: Last Vital Signs Temp 98.5 F 11/27/18 18:22 Pulse 69 11/27/18 18:22 Resp 16 11/27/18 18:22 BP 108/71 11/27/18 18:22 Pulse Ox 100 11/27/18 18:22 Primary Care Provider: Kay Gusman - Medical History PMH: Back Problems, Gastritis, Rheumatoid Arthritis Denies: Chronic Kidney Disease Surgical History: No Surg Hx Family History: States: Unknown Family Hx - Social History Hx Tobacco Use: No Hx Alcohol Use: Yes Hx Substance Use: No - Immunization History Hx Tetanus Toxoid Vaccination: No Hx Influenza Vaccination: No Hx Pneumococcal Vaccination: No Review Of Systems Constitutional: Negative for: Fever, Chills Eyes: Negative for: Vision Change Cardiovascular: Positive for: Chest Pain Respiratory: Negative for: Shortness of Breath Gastrointestinal: Negative for: Nausea, Vomiting, Abdominal Pain Musculoskeletal: Positive for: Neck Pain, Shoulder Pain Skin: Negative for: Rash Neurological: Negative for: Weakness, Numbness, Headache, Dizziness Physical Exam - Physical Exam Appears: Non-toxic, No Acute Distress Skin: Normal Color, Warm, Dry, No Rash Head: Atraumatic, Normacephalic Eye(s): bilateral: Normal Inspection, PERRL, EOMI Oral Mucosa: Moist Neck: Normal ROM, No Midline Cervical Tenderness, Paracervical Tenderness (left ), Supple Chest: Symmetrical Cardiovascular: Rhythm Regular Respiratory: Normal Breath Sounds, No Rales, No Rhonchi, No Wheezing Gastrointestinal/Abdominal: Soft, No Tenderness, No Guarding, No Rebound Extremity: Normal ROM, No Tenderness, No Swelling Neurological/Psych: Oriented x3, Normal Speech, Normal Cognition Gait: Steady ED Course And Treatment - Laboratory Results Result Diagrams: 11/27/18 20:24 11/27/18 20:24 ECG: Interpreted By Me, Viewed By Me ECG Rhythm: Sinus Rhythm ECG Interpretation: Normal Interpretation Of ECG: NSR with sinus arrythmia, normal tracings. Rate From EC O2 Sat by Pulse Oximetry: 100 (ON RA) Pulse Ox Interpretation: Normal - Radiology CXR: Interpreted by Me, Viewed By Me CXR Interpretation: Yes: No Acute Disease. No: Infiltrates (normal chest film) - Other Rad cervical spine X-Ray: Interpreted by Me, Viewed By Me Interpretation: no acute pathology Medical Decision Making Medical Decision Making: Plan: * EKG * Labs * CXR * Cspine X-Ray * UA Disposition Counseled Patient/Family Regarding: Diagnosis - Disposition Referrals: [facility] [Outside] Disposition: HOME/ ROUTINE Disposition Time: 21:15 Condition: STABLE Prescriptions: Cyclobenzaprine [Flexeril] 5 mg PO TID #20 tab Naproxen [Naprosyn] 1 tab PO BIDPC #14 tab Instructions: Cervical Muscle Strain, Costochondritis (DC) Forms: [email or web address] (Afghan) - POA Present On Arrival: None - Clinical Impression Clinical Impression: Cervical muscle strain, Chest wall pain - Scribe Statement The provider has reviewed the documentation as recorded by the Scribe Chapito Larson All medical record entries made by the Scribe were at my direction and personally dictated by me. I have reviewed the chart and agree that the record accurately reflects my personal performance of the history, physical exam, medical decision making, and the department course for this patient. I have also personally directed, reviewed, and agree with the discharge instructions and disposition.
[2018-11-27 20:31] LABS: BASO % 0.6 % (0.0-2.0); EOS # 0.2 K/uL (0.0-0.7); EOS % 2.5 % (0.0-4.0); LYMPH # 3.5 K/uL (1.0-4.3); MEAN CELL VOLUME 95.8 fL (81.0-99.0); MEAN CORPUSCULAR HEMOGLOBIN 32.6 pg (27.0-31.0); MEAN PLATELET VOLUME 9.7 fL (7.2-11.7); MONO # 0.5 K/uL (0.0-0.8); MONO % 5.8 % (0.0-10.0); NEUT # 3.9 K/uL (1.8-7.0); NEUT % 48.1 % (50.0-75.0); RBC 3.99 Mil/uL (3.80-5.20); RED CELL DISTRIBUTION WIDTH 12.6 % (11.5-14.5)
[2018-11-27 20:50] LABS: ALB/GLOB RATIO 1.4 (1.0-2.1); ALBUMIN 4.2 g/dL (3.5-5.0); ALT/SGPT 35 U/L (9-52); AST/SGOT 27 U/L (14-36); BLOOD UREA NITROGEN 9 mg/dL (7-17); CALCIUM 9.5 mg/dl (8.6-10.4); GFR NON-AFRICAN AMERICAN > 60
[2018-11-27 20:51] LABS: SQUAMOUS EPITHIAL 2 /hpf (0-5); URINE BACTERIA RARE (<OCC); URINE BILIRUBIN NEGATIVE (NEGATIVE); URINE BLOOD 2+ (NEGATIVE); URINE CLARITY Hazy (Clear); URINE COLOR Yellow (YELLOW); URINE GLUCOSE (UA) NORMAL (Normal); URINE LEUKOCYTE ESTERASE NEG Leu/uL (Negative); URINE PROTEIN NEGATIVE (NEGATIVE); URINE UROBILINOGEN NORMAL mg/dL (0.2-1.0)
[2018-11-27 21:24] VITALS: BP 100/63; PULSE 61; TEMP 97.9; O2SAT 97
--- NOTE | 2018-11-28 08:30 | RAD ---
Date of service: 11/27/2018 PROCEDURE: Cervical Spine Radiographs. HISTORY: Pain. COMPARISON: None available. TECHNIQUE: 3 views obtained. FINDINGS: BONES: Alignment maintained. No fracture. Dens Intact. DISC SPACES: Normal. SOFT TISSUES: Normal. No prevertebral soft tissue swelling. OTHER FINDINGS: None. IMPRESSION: Normal cervical spine radiographs
--- NOTE | 2018-11-28 09:31 | RAD ---
Date of service: 11/27/2018 HISTORY: chest pain COMPARISON: No prior. TECHNIQUE: Chest PA and lateral FINDINGS: LUNGS: No active pulmonary disease. PLEURA: No significant pleural effusion identified. No pneumothorax apparent. CARDIOVASCULAR: No aortic atherosclerotic calcification present. Normal cardiac size. OSSEOUS STRUCTURES: No significant abnormalities. VISUALIZED UPPER ABDOMEN: Normal. OTHER FINDINGS: None. IMPRESSION: No active disease.
== END 2018-11-27 21:32 | disposition home or self-care (01) ==
LOC: C.ER 18:20
DX: S16.1XXA Strain of muscle, fascia and tendon at neck level, initial encounter (principal); X58.XXXA Exposure to other specified factors, initial encounter; R07.89 Other chest pain
CPT/HCPCS: 71046; 72040; 80053; 81001; 84484; 84703; 85025; 96374; 99285; J1885